=== PATIENT | female | born 1980 | race Two or more races ===

== ENCOUNTER 2017-11-10 18:17 | Emergency (ER) | payer OTHER ==
--- NOTE | 2017-11-10 20:20 | ER Document Report ---
ED Medical Screen (RME) - General Chief Complaint: Headache Stated Complaint: HEADACHE Time Seen by Provider: 11/10/17 20:18 Notes: Patient arrives from home. She states today a friend came over and said that her left face was drooping and that her left arm was not working well. She states she has had intermittent bouts of random weakness of different extremities as well as problems with confusion. She states she has had 2 recent MRIs. She does have MRI results with her that show some equivocal findings. Patient has been referred to neurology, with Dr. Groves at [facility]. I tried to page [facility] and was told the nurse would call me back. As of this time there is been no return phone call. Patient states her appointment with Dr. Groves is in the middle of November. She states she cannot wait until then. TRAVEL OUTSIDE OF THE [place] IN LAST 30 DAYS: No - Related Data Allergies/Adverse Reactions: amoxicillin Allergy (Verified 11/10/17 18:43) Past Medical History - Social History Chew tobacco use (# tins/day): No Frequency of alcohol use: None Drug Abuse: None Renal/ Medical History: Denies: Hx Peritoneal Dialysis
[2017-11-10 22:34] LABS: ABSOLUTE BASOPHILS # (AUTO) 0.1 10^3/uL (0.0-0.2); ABSOLUTE EOSINOPHILS # (AUTO) 0.1 10^3/uL (0.0-0.6); ABSOLUTE LYMPHOCYTES (AUTO) 3.7 10^3/uL (0.5-4.7); ABSOLUTE MONOCYTES (AUTO) 0.8 10^3/uL (0.1-1.4); ABSOLUTE NEUT (AUTO) 7.9 10^3/uL (1.7-8.2); BASOPHILS % (AUTO) 0.7 % (0-2); EOSINOPHILS % (AUTO) 0.9 % (0-6); HEMATOCRIT 41.8 % (36.0-47.0); HEMOGLOBIN 14.6 g/dL (12.0-15.5); LYMPHOCYTES % (AUTO) 29.5 % (13-45); MEAN CORPUSCULAR HEMOGLOBIN 31.6 pg (27.0-33.4); MEAN CORPUSCULAR HGB CONC 34.9 g/dL (32.0-36.0); MEAN CORPUSCULAR VOLUME 91 fl (80-97); MONOCYTES % (AUTO) 6.4 % (3-13); PLATELET COUNT 297 10^3/uL (150-450); RED BLOOD COUNT 4.62 10^6/uL (3.72-5.28); RED CELL DISTRIBUTION WIDTH 12.4 % (11.5-14.0); SEGMENTED NEUTROPHILS % (AUTO) 62.5 % (42-78); TOTAL CELLS COUNTED % (AUTO) 100 %; WHITE BLOOD COUNT 12.7 10^3/uL (4.0-10.5)
[2017-11-10 22:43] LABS: APPEARANCE,URINE SLIGHTLY-CLOUDY; BILIRUBIN,URINE NEGATIVE (NEGATIVE); COLOR,URINE YELLOW; GLUCOSE, URINE NEGATIVE (NEGATIVE); KETONES,URINE NEGATIVE (NEGATIVE); LEUKOCYTE ESTERASE,URINE TRACE (NEGATIVE); NITRITE,URINE NEGATIVE (NEGATIVE); PROTEIN,URINE NEGATIVE (NEGATIVE); URINE SPECIFIC GRAVITY 1.019
[2017-11-10 22:51] LABS: ALANINE AMINOTRANSFERASE 20 U/L (9-52); ALBUMIN 4.5 g/dL (3.5-5.0); ALKALINE PHOSPHATASE 83 U/L (38-126); ANION GAP 10 (5-19); ASPARTATE AMINO TRANSFERASE 18 U/L (14-36); BILIRUBIN,DIRECT 0.2 mg/dL (0.0-0.4); BILIRUBIN,TOTAL 0.4 mg/dL (0.2-1.3); BLOOD UREA NITROGEN 14 mg/dL (7-20); CARBON DIOXIDE 28 mmol/L (22-30); CHLORIDE 101 mmol/L (98-107); GLUCOSE 150 mg/dL (75-110); POTASSIUM 3.6 mmol/L (3.6-5.0); SODIUM 138.9 mmol/L (137-145); TOTAL PROTEIN 7.3 g/dL (6.3-8.2)
[2017-11-11] MEDS ORDERED: NORMAL SALINE 1000 ML 1,000 ML IV ONE (00:02)
[2017-11-11] MEDS ORDERED: HALOPERIDOL LACTATE INJ 5 MG/1 ML VIAL IV ONE (00:02)
--- NOTE | 2017-11-11 01:07 | ER Document Report ---
ED General - General Chief Complaint: Headache Stated Complaint: HEADACHE Time Seen by Provider: 11/10/17 20:18 Notes: Patient is a 37-year-old female without past medical history who presents with 2 weeks of intermittent headache with associated paresthesias of the left upper extremity as well as blurring of vision. Patient was seen as an outpatient and had an MRI of her head completed. This did show nonspecific white matter changes. She has subsequently been referred to a neurologist and is scheduled to have an appointment this week. Patient states that she came to the emergency department tonight because the headache recurred. Headache is described as a dull, constant throbbing bitemporal headache. Lights and sounds worsen headache. Nothing improves the headache. She denies a history of similar headaches prior to the past 3 weeks. She denies any fever, confusion, neck pain, vomiting, or focal weakness. No difficulty with ambulation. TRAVEL OUTSIDE OF THE [place] IN LAST 30 DAYS: No - Related Data Allergies/Adverse Reactions: amoxicillin Allergy (Verified 11/10/17 18:43) Past Medical History - General Information source: Patient - Social History Smoking Status: Former Smoker Chew tobacco use (# tins/day): No Frequency of alcohol use: None Drug Abuse: None Lives with: Spouse/Significant other Family History: Reviewed & Not Pertinent Patient has suicidal ideation: No Patient has homicidal ideation: No - Past Medical History Cardiac Medical History: Reports: Hx Hypertension Renal/ Medical History: Denies: Hx Peritoneal Dialysis Psychiatric Medical History: Reports: Hx Depression - anxiety Past Surgical History: Reports: Hx Cholecystectomy Review of Systems - Review of Systems Notes: Constitutional: Negative for fever. HENT: Negative for sore throat. Eyes: Positive for blurring of vision Cardiovascular: Negative for chest pain. Respiratory: Negative for shortness of breath. Gastrointestinal: Negative for abdominal pain, vomiting or diarrhea. Genitourinary: Negative for dysuria. Musculoskeletal: Negative for back pain. Skin: Negative for rash. Neurological: Positive for headache and left-sided paresthesias 10 point ROS negative except as marked above and in HPI. Physical Exam - Vital signs Vitals: Temp Pulse Resp BP Pulse Ox 98.3 F 68 19 128/84 H 99 11/11/17 01:29 11/11/17 01:29 11/11/17 01:29 11/11/17 01:29 11/11/17 01:29 Interpretation: Normal Notes: PHYSICAL EXAMINATION: GENERAL: Appears uncomfortable but in no acute distress HEAD: Atraumatic, normocephalic. EYES: Pupils equal round and reactive to light, extraocular movements intact, sclera anicteric, conjunctiva are normal. ENT: nares patent, oropharynx clear without exudates. Moist mucous membranes. NECK: Normal range of motion, supple without lymphadenopathy LUNGS: Breath sounds clear to auscultation bilaterally and equal. No wheezes rales or rhonchi. HEART: Regular rate and rhythm without murmurs ABDOMEN: Soft, nontender, normoactive bowel sounds. No guarding, no rebound. No masses appreciated. EXTREMITIES: Normal range of motion, no pitting or edema. No cyanosis. NEUROLOGICAL: Face symmetric. Tongue protrudes midline. Extraocular motions intact. Pupils are 2 mm and equally reactive. Normal speech, normal gait. 5 out of 5 strength in both the distal and proximal upper and lower extremities bilaterally. Sensation is grossly intact throughout. Finger to nose testing normal. Pronator drift normal. PSYCH: Normal mood, normal affect. SKIN: Warm, Dry, normal turgor, no rashes or lesions noted. Course - Re-evaluation Re-evalutation: 11/11/17 01:05 Patient presents with 3 weeks of a chronic, daily headache associated with blurring of her vision and paresthesias. Patient has already had 2 MRIs of her head since onset of these symptoms and has been found to have nonspecific white matter lesions worrisome for possible multiple sclerosis. She is scheduled follow-up with a neurologist later this week. Here on examination she has no focal neurologic deficits. Otherwise nontoxic in appearance, vitals within normal limits. I do not see indication for repeat neuroimaging as she is ready had 2 MRIs in less than 2 weeks. I have instructed her that she needs to follow -up with neurology as scheduled as there is no additional management that can be offered in the emergency department setting. I have expressed to her and her at the bedside my concern that she may be developing multiple sclerosis but that definitive diagnosis will can be obtained through the neurologist. At this time will discharge with return precautions and follow-up recommendations. Verbal discharge instructions given a the bedside and opportunity for questions given. Medication warnings reviewed. Patient is in agreement with this plan and has verbalized understanding of return precautions and the need for primary care follow-up in the next 24-72 hours. - Vital Signs Vital signs: Temp Pulse Resp BP Pulse Ox 98.3 F 68 19 128/84 H 99 11/11/17 01:29 11/11/17 01:29 11/11/17 01:29 11/11/17 01:29 11/11/17 01:29 - Laboratory Result Diagrams: 11/10/17 22:15 11/10/17 22:15 Laboratory results interpreted by me: 11/10/17 11/10/17 11/10/17 22:15 22:15 22:15 WBC 12.7 H Glucose 150 H Urine Urobilinogen 4.0 H Ur Leukocyte Esterase TRACE H Discharge - Discharge Clinical Impression: Paresthesias, Blurring of vision Headache Qualifiers: Headache type: unspecified Headache chronicity pattern: chronic headache Intractability: intractable Qualified Code(s): R51 - Headache Condition: Stable Disposition: HOME, SELF-CARE Additional Instructions: Please follow-up with your primary doctor and neurologist as scheduled. Return for focal weakness, worsening of your headache, persistent vomiting, fever, confusion or any other symptoms that are worrisome to you. Referrals: COLLEEN KELLER DO [Primary Care Provider] - Follow up as needed
[2017-11-11 01:30] VITALS: BP 128/84
== END 2017-11-11 01:30 | disposition home or self-care (01) ==
LOC: ER 18:17
DX: R51 Headache (principal); R20.0 Anesthesia of skin; H53.8 Other visual disturbances; Z87.891 Personal history of nicotine dependence
CPT/HCPCS: 99284; 96361; 96374; 36415; 85025; 81025; 80053; 81001; J1630; J7030

== ENCOUNTER 2017-12-15 13:40 | Emergency (ER) | payer OTHER ==
--- NOTE | 2017-12-15 15:01 | ER Document Report ---
ED Medical Screen (RME) - General Chief Complaint: Headache Stated Complaint: HEADACHE Time Seen by Provider: 12/15/17 14:59 Notes: Patient presents after an event at school which she started with severe left sided headache she states she then felt like she lost consciousness because she has only partial memories of the events. She also states her left arm feels painful and weak and numb. She has had similar symptoms over the last month. She has had a negative MRI and CT. She has seen neurology. She has been told that they are not able to find anything but they have scheduled her for an EEG this Friday. She also had normal labs about 2 weeks ago. Patient's neurologist is Damaris Lloyd in [place]. TRAVEL OUTSIDE OF THE [place] IN LAST 30 DAYS: No - Related Data Allergies/Adverse Reactions: amoxicillin Allergy (Verified 11/10/17 18:43) Past Medical History - Social History Chew tobacco use (# tins/day): No Frequency of alcohol use: Occasional Drug Abuse: None - Past Medical History Cardiac Medical History: Reports: Hx Hypertension Renal/ Medical History: Denies: Hx Peritoneal Dialysis Psychiatric Medical History: Reports: Hx Depression - anxiety Past Surgical History: Reports: Hx Cholecystectomy Physical Exam - Vital signs Vitals: Temp Pulse Resp BP Pulse Ox 98.0 F 73 16 134/91 H 98 12/15/17 13:56 12/15/17 13:56 12/15/17 13:56 12/15/17 13:56 12/15/17 13:56 Course - Vital Signs Vital signs: Temp Pulse Resp BP Pulse Ox 98.0 F 73 16 134/91 H 98 12/15/17 13:56 12/15/17 13:56 12/15/17 13:56 12/15/17 13:56 12/15/17 13:56
[2017-12-15 15:22] LABS: APPEARANCE,URINE CLEAR; BILIRUBIN,URINE NEGATIVE (NEGATIVE); COLOR,URINE YELLOW; GLUCOSE, URINE NEGATIVE (NEGATIVE); KETONES,URINE TRACE mg/dL (NEGATIVE); LEUKOCYTE ESTERASE,URINE NEGATIVE (NEGATIVE); NITRITE,URINE NEGATIVE (NEGATIVE); PROTEIN,URINE NEGATIVE (NEGATIVE); URINE SPECIFIC GRAVITY 1.008; UROBILINOGEN,URINE NEGATIVE mg/dL (<2.0)
[2017-12-15 15:29] LABS: ABSOLUTE BASOPHILS # (AUTO) 0.1 10^3/uL (0.0-0.2); ABSOLUTE EOSINOPHILS # (AUTO) 0.1 10^3/uL (0.0-0.6); ABSOLUTE LYMPHOCYTES (AUTO) 2.4 10^3/uL (0.5-4.7); ABSOLUTE MONOCYTES (AUTO) 0.5 10^3/uL (0.1-1.4); ABSOLUTE NEUT (AUTO) 7.3 10^3/uL (1.7-8.2); BASOPHILS % (AUTO) 0.6 % (0-2); EOSINOPHILS % (AUTO) 0.6 % (0-6); HEMATOCRIT 40.2 % (36.0-47.0); MEAN CORPUSCULAR HEMOGLOBIN 31.7 pg (27.0-33.4); MEAN CORPUSCULAR HGB CONC 34.8 g/dL (32.0-36.0); MEAN CORPUSCULAR VOLUME 91 fl (80-97); MONOCYTES % (AUTO) 4.9 % (3-13); PLATELET COUNT 303 10^3/uL (150-450); RED BLOOD COUNT 4.42 10^6/uL (3.72-5.28); RED CELL DISTRIBUTION WIDTH 12.5 % (11.5-14.0); SEGMENTED NEUTROPHILS % (AUTO) 70.9 % (42-78); TOTAL CELLS COUNTED % (AUTO) 100 %; WHITE BLOOD COUNT 10.3 10^3/uL (4.0-10.5)
[2017-12-15 15:52] LABS: ALANINE AMINOTRANSFERASE 22 U/L (9-52); ALBUMIN 4.2 g/dL (3.5-5.0); ALKALINE PHOSPHATASE 99 U/L (38-126); ANION GAP 10 (5-19); ASPARTATE AMINO TRANSFERASE 18 U/L (14-36); BILIRUBIN,DIRECT 0.3 mg/dL (0.0-0.4); BILIRUBIN,TOTAL 0.6 mg/dL (0.2-1.3); BLOOD UREA NITROGEN 11 mg/dL (7-20); CALCIUM 9.4 mg/dL (8.4-10.2); CARBON DIOXIDE 29 mmol/L (22-30); CHLORIDE 100 mmol/L (98-107); GLUCOSE 98 mg/dL (75-110); POTASSIUM 3.1 mmol/L (3.6-5.0); TOTAL PROTEIN 7.4 g/dL (6.3-8.2)
[2017-12-15] MEDS ORDERED: KETOROLAC TROMETHAMINE INJ/PF 30 MG/1 ML SDV IV ONE (16:29)
[2017-12-15] MEDS ORDERED: PROCHLORPERAZINE EDISYLATE INJ 10 MG/2 ML VIAL IV ONE (16:29)
[2017-12-15] MEDS ORDERED: NORMAL SALINE 1000 ML 1,000 ML IV ONE (16:29)
[2017-12-15] MEDS ORDERED: HALOPERIDOL LACTATE INJ 5 MG/1 ML VIAL IV ONE (16:47)
--- NOTE | 2017-12-15 16:47 | ER Document Report ---
ED Headache - General Chief Complaint: Headache Stated Complaint: HEADACHE Time Seen by Provider: 12/15/17 14:59 Mode of Arrival: Ambulatory Information source: Patient Notes: Patient is a 37-year-old female who presents to the ER today for headache that started at 11:30 AM this morning. Patient states that is localized behind the left eye. Patient has had 2 MRIs, and is currently undergoing neurology workup for possible multiple sclerosis, has an EEG scheduled for 4 days from now. Patient has had left-sided numbness to her left pinky finger on her hand and left great toe on her foot since October 30 with these intermittent headaches. Patient also has periods where she "blacks out." states that she will become unresponsive for a period of time, minutes or even seconds, and then is tired with headaches afterwards. He denies that she shakes during these times, bites her tongue or urinate on herself. Patient has no history of seizures that she knows of. She was seen here recently for the same type of headache. She states that prior to October she had no history of migraines or headaches. She states that both MRIs have "not shown anything." She denies history of stroke. She denies blurred vision. TRAVEL OUTSIDE OF THE [place] IN LAST 30 DAYS: No - Related Data Allergies/Adverse Reactions: amoxicillin Allergy (Verified 11/10/17 18:43) Past Medical History - General Information source: Patient - Social History Smoking Status: Former Smoker Chew tobacco use (# tins/day): No Frequency of alcohol use: Occasional Drug Abuse: None Family History: Reviewed & Not Pertinent Patient has suicidal ideation: No Patient has homicidal ideation: No - Past Medical History Cardiac Medical History: Reports: Hx Hypertension Renal/ Medical History: Denies: Hx Peritoneal Dialysis Psychiatric Medical History: Reports: Hx Depression - anxiety Past Surgical History: Reports: Hx Cholecystectomy Review of Systems - Review of Systems Constitutional: No symptoms reported EENT: No symptoms reported Cardiovascular: No symptoms reported Respiratory: No symptoms reported Gastrointestinal: No symptoms reported Genitourinary: No symptoms reported Female Genitourinary: No symptoms reported Musculoskeletal: No symptoms reported Skin: No symptoms reported Hematologic/Lymphatic: No symptoms reported Neurological/Psychological: See HPI Physical Exam - Vital signs Vitals: Temp Pulse Resp BP Pulse Ox 98.0 F 73 16 134/91 H 98 12/15/17 13:56 12/15/17 13:56 12/15/17 13:56 12/15/17 13:56 12/15/17 13:56 - Notes Notes: PHYSICAL EXAMINATION: GENERAL: Well-appearing and in no acute distress. HEAD: Atraumatic, normocephalic. EYES: Pupils equal round and reactive to light, extraocular movements intact, sclera anicteric, conjunctiva are normal. NECK: Normal range of motion, supple without lymphadenopathy LUNGS: CTAB and equal. No wheezes rales or rhonchi. HEART: Regular rate and rhythm without murmurs EXTREMITIES: Normal range of motion, no pitting edema. No cyanosis. NEUROLOGICAL: Cranial nerves grossly intact. Normal kiln tender strength bilateral hands, decreased sensation to the left fifth digit on the hand and foot only, good and equal strength bilaterally, Kernig and Brudzinski's signs negative, Romberg's test normal, normal heel to cardona testing PSYCH: Normal mood, normal affect. SKIN: Warm, Dry, normal turgor, no rashes or lesions noted Course - Re-evaluation Re-evalutation: 12/15/17 22:15 Haldol worked well for patient last time, it did work again for patient this time. Patient has no headache on discharge. Patient to follow-up with her neurologist to keep her appointment in 4 days for her EEG. Her "episodes" do sound like seizure activity to me. On review of her chart it does appear that there were some white matter changes on one of her MRIs - Vital Signs Vital signs: Temp Pulse Resp BP Pulse Ox 97.7 F 76 16 128/86 H 98 12/15/17 17:54 12/15/17 17:54 12/15/17 17:54 12/15/17 17:54 12/15/17 17:54 - Laboratory Result Diagrams: 12/15/17 15:19 12/15/17 15:19 Laboratory results interpreted by me: 12/15/17 12/15/17 14:00 15:19 Potassium 3.1 L Urine Ketones TRACE H Urine Blood SMALL H Discharge - Discharge Clinical Impression: Headache Qualifiers: Headache type: unspecified Headache chronicity pattern: acute headache Intractability: not intractable Qualified Code(s): R51 - Headache Condition: Stable Disposition: HOME, SELF-CARE Additional Instructions: Return immediately for any new or worsening symptoms. Follow up with neurologist, call tomorrow to make followup appointment. Please keep your appointment for your EEG. Prescriptions: Haloperidol [Haldol 5 mg Tablet] 5 mg PO DAILY PRN #5 tablet PRN Reason: Forms: Return to Work Referrals: SWAPNIL PRICE PA-C [Primary Care Provider] - Follow up as needed
[2017-12-15] MEDS ORDERED: POTASSIUM CHLORIDE 10 MEQ TABLET.SA PO ONE (17:16)
[2017-12-15 17:55] VITALS: BP 128/86
--- NOTE | 2017-12-15 23:28 | EKG REPORT ---
SEVERITY:- BORDERLINE ECG - SINUS RHYTHM LVH BY VOLTAGE : Confirmed by: Johnny Henry 15-Dec-2017 23:27:44
== END 2017-12-15 18:00 | disposition home or self-care (01) ==
LOC: ER 13:40
DX: R51 Headache (principal); R20.0 Anesthesia of skin; I10 Essential (primary) hypertension; Z87.891 Personal history of nicotine dependence; Z88.0 Allergy status to penicillin
CPT/HCPCS: 93005; 99284; 96361; 96374; 36415; 85025; 80053; 81001; 93010; J1630; J7030